=== PATIENT | male | born 1960 | race Caucasian/White ===

== ENCOUNTER → 2018-02-21 | Outpatient (CLI) | payer OTHER | END | disposition home or self-care (01) | LOC: CFH 10:06 | PROVIDERS: ATTEND Family Medicine | DX: K80.20 Calculus of gallbladder without cholecystitis without obstruction (principal); R94.5 Abnormal results of liver function studies | CPT/HCPCS: 76705 ==

== ENCOUNTER 2018-05-24 10:22 | Inpatient (IN) | payer OTHER ==
[~2018-05-24] VITALS: Ht 182.9 cm; Wt 88.8 kg
[2018-05-24 11:30] LABS: BASOPHILS % (AUTO) 0 % (0-1); EOSINOPHILS # (AUTO) 0.03 x10^3/uL (0-0.4); EOSINOPHILS % (AUTO) 0 % (1-7); LYMPHOCYTES % (AUTO) 15 % (22-44); MD NO; MEAN CORPUSCULAR HEMOGLOBIN 31.2 pg (27.5-34.5); MEAN CORPUSCULAR VOLUME 91.7 fL (81-97); MEAN PLATELET VOLUME 8.2 fL (7.4-10.4); MONOCYTES # (AUTO) 1.29 x10^3/uL (0.2-0.8); MONOCYTES % (AUTO) 12 % (2-9); NEUTROPHILS # (AUTO) 7.99 x10^3/uL (1.8-6.8); NEUTROPHILS % (AUTO) 73 % (42-75); PLATELET COUNT 286 x10^3/uL (130-400); RED BLOOD COUNT 4.43 x10^6/uL (4.38-5.82); RED CELL DISTRIBUTION WIDTH 14.1 % (9.4-14.8)
[2018-05-24 11:38] LABS: INTERNATIONAL NORMALIZED RATIO 1.01 (0.93-1.1); PROTHROMBIN TIME 10.7 Seconds (9.6-11.5)
[2018-05-24 11:40] LABS: ALBUMIN 3.5 g/dL (3.4-5.0); ANION GAP 7 mmol/L (5-15); CALCIUM 9.1 mg/dL (8.5-10.1); CHLORIDE 96 mmol/L (98-107); CREATININE 0.94 mg/dL (0.7-1.3)
--- NOTE | 2018-05-24 12:23 | NUR ---
PT CURRENTLY IN .
[2018-05-24] MEDS ORDERED: VANCOMYCIN 1,600 MG in SODIUM CHLORIDE 0.9% 250 ML IV ONE (13:30)
[2018-05-24] MEDS ORDERED: PIPERACILLIN/TAZO/PMX 3.375GM 50 ML IVPB ONE (13:30)
[2018-05-24] MEDS ORDERED: VANCOMYCIN PER PHARMACY MC ONE (13:30)
[2018-05-24] MEDS ORDERED: SODIUM CHLORIDE FLUSH 10ML SYR IVF ONE (13:30)
[2018-05-24 13:41] LABS: ALANINE AMINOTRANSFERASE 44 U/L (12-78); ALBUMIN 3.8 g/dL (3.4-5.0); ANION GAP 4 mmol/L (5-15); CALCIUM 9.1 mg/dL (8.5-10.1); CHLORIDE 96 mmol/L (98-107); CREATININE 0.92 mg/dL (0.7-1.3)
[2018-05-24 13:43] LABS: ALKALINE PHOSPHATASE 93 U/L (45-117); BILIRUBIN,TOTAL 2.5 mg/dL (0.2-1.0); TOTAL PROTEIN 8.5 g/dL (6.4-8.2)
[2018-05-24] MEDS ORDERED: PIPERACILLIN/TAZO/PMX 3.375GM 50 ML ONE (14:12)
--- NOTE | 2018-05-24 14:32 | NUR ---
S/P SPRAINED ANKLE 05/18. PRESENTS WITH INCREASED SWELLING. ERYTHEMA WHICH IS HOT TO TOUCH, DENIES CHILLS/N/V. SKIN/SLERA YELLOWED.
[2018-05-24] MEDS ORDERED: DIGO250T PO (14:46)
[2018-05-24] MEDS ORDERED: OLME40TA12 PO (14:46)
[2018-05-24] MEDS ORDERED: SILD25TA PO (14:46)
[2018-05-24] MEDS ORDERED: SIMV20TA3 PO (14:46)
[2018-05-24] MEDS ORDERED: WARF7.5T46 PO (14:46)
[2018-05-24] MEDS ORDERED: VALA500T PO (14:46)
[2018-05-24] MEDS ORDERED: METO50TA82 PO (14:46)
[2018-05-24] MEDS ORDERED: FOLI-17 PO (14:46)
[2018-05-24] MEDS ORDERED: SODIUM CHLORIDE FLUSH 10ML SYR IVF PRN (15:00)
[2018-05-24] MEDS ORDERED: VANCOMYCIN PER PHARMACY MC PRN (15:30)
[2018-05-24] MEDS ORDERED: ONDANSETRON 2MG/ML, 2ML IVPush PRN (15:30)
[2018-05-24] MEDS ORDERED: GABAPENTIN 300 MG CAPSULE PO PRN (15:30)
[2018-05-24] MEDS ORDERED: METHOCARBAMOL 500 MG TABLET PO PRN (15:30)
[2018-05-24] MEDS ORDERED: ONDANSETRON ODT 4 MG PO PRN (15:30)
[2018-05-24 16:19] LABS: CHLORIDE,URINE RANDOM 16 mmol/L; MICROSCOPIC NOT IND; POTASSIUM,URINE RANDOM 62 mmol/L; SODIUM,URINE RANDOM 12 mmol/L
[2018-05-24 16:22] LABS: CULTURE INDICATED? NO
[2018-05-24] MEDS ORDERED: SILDENAFIL CITRATE 25 MG PO PRN (17:00)
[2018-05-24] MEDS ORDERED: PHARMACOKINETIC MONITORING MC PRN (17:00)
[2018-05-24] MEDS: VALACYCLOVIR 500MG TABLET PO SCH ×2 (17:00→20:34)
[2018-05-24] MEDS ORDERED: PHARMACOKINETIC CONSULTATION MC ONE (17:00)
[2018-05-24 17:08] VITALS: BP 133/69
[2018-05-24] MEDS: SODIUM CHLORIDE 0.9% 1,000 ML IV SCH (17:24)
[2018-05-24] MEDS: AMPICILLIN/SULBACTAM 3 GM in SODIUM CHLORIDE 0.9% 100 ML IV SCH ×2 (17:25→23:07)
[2018-05-24] MEDS: ENOXAPARIN 40 MG/0.4 ML SQ SCH (17:27)
[2018-05-24 17:29] LABS: AMPHETAMINE SCREEN, URINE Negative (Negative); CANNABINOID SCREEN, URINE Negative (Negative); COCAINE SCREEN, URINE Negative (Negative); METHADONE SCREEN, URINE Negative (Negative); OPIATE SCREEN, URINE Negative (Negative)
[2018-05-24 17:38] LABS: BARBITURATE SCREEN, URINE Negative (Negative); BENZODIAZEPINE SCREEN, URINE Negative (Negative)
[2018-05-24] MEDS ORDERED: WARFARIN 10 MG TABLET PO-COUM ONE (18:00)
[2018-05-24 19:44] VITALS: BP 122/67
[2018-05-24] MEDS: SIMVASTATIN 20 MG TABLET PO SCH (20:34)
[2018-05-24] MEDS: OLMESARTAN MEDOXOMIL 40 MG PO SCH (20:34)
[2018-05-25 01:08] VITALS: BP 134/90
[2018-05-25] MEDS: SODIUM CHLORIDE 0.9% 1,000 ML IV SCH ×3 (03:04→21:23)
[2018-05-25] MEDS: AMPICILLIN/SULBACTAM 3 GM in SODIUM CHLORIDE 0.9% 100 ML IV SCH ×4 (05:14→23:04)
[2018-05-25 05:41] LABS: INTERNATIONAL NORMALIZED RATIO 1.01 (0.93-1.1); PROTHROMBIN TIME 10.7 Seconds (9.6-11.5)
[2018-05-25 05:48] LABS: BASOPHILS # (AUTO) 0.03 x10^3/uL (0-0.1); BASOPHILS % (AUTO) 0 % (0-1); EOSINOPHILS # (AUTO) 0.06 x10^3/uL (0-0.4); EOSINOPHILS % (AUTO) 1 % (1-7); LYMPHOCYTES # (AUTO) 1.35 x10^3/uL (1-3.4); LYMPHOCYTES % (AUTO) 19 % (22-44); MD NO; MEAN CORPUSCULAR HEMOGLOBIN 31.5 pg (27.5-34.5); MEAN CORPUSCULAR HGB CONC 34.4 g/dL (33.2-36.2); MEAN CORPUSCULAR VOLUME 91.5 fL (81-97); MEAN PLATELET VOLUME 8.1 fL (7.4-10.4); MONOCYTES # (AUTO) 0.97 x10^3/uL (0.2-0.8); MONOCYTES % (AUTO) 14 % (2-9); NEUTROPHILS # (AUTO) 4.72 x10^3/uL (1.8-6.8); NEUTROPHILS % (AUTO) 66 % (42-75); PLATELET COUNT 221 x10^3/uL (130-400); RED BLOOD COUNT 3.71 x10^6/uL (4.38-5.82); RED CELL DISTRIBUTION WIDTH 14.1 % (9.4-14.8)
[2018-05-25 05:53] LABS: ALBUMIN 2.9 g/dL (3.4-5.0); ANION GAP 7 mmol/L (5-15); CHLORIDE 98 mmol/L (98-107)
[2018-05-25 05:56] LABS: ALANINE AMINOTRANSFERASE 35 U/L (12-78); ALKALINE PHOSPHATASE 74 U/L (45-117); BILIRUBIN,TOTAL 1.8 mg/dL (0.2-1.0); CREATININE 0.73 mg/dL (0.7-1.3); TOTAL PROTEIN 6.3 g/dL (6.4-8.2)
[2018-05-25 08:00] VITALS: BP 151/82
[2018-05-25] MEDS: VALACYCLOVIR 500MG TABLET PO SCH ×3 (08:01→21:23)
[2018-05-25] MEDS: FOLIC ACID 1 MG TABLET PO SCH (08:15)
[2018-05-25] MEDS: VANCOMYCIN 1,800 MG in SODIUM CHLORIDE 0.9% 250 ML IV SCH (08:15)
[2018-05-25] MEDS: DIGOXIN 0.25 MG TABLET PO SCH (08:15)
[2018-05-25] MEDS: METOPROLOL TARTRATE 50 MG TABLET PO SCH (08:16)
[2018-05-25 14:00] VITALS: BP 117/67
[2018-05-25] MEDS ORDERED: WARFARIN 10 MG TABLET PO-COUM ONE (18:00)
[2018-05-25] MEDS: ENOXAPARIN 40 MG/0.4 ML SQ SCH (18:01)
[2018-05-25 18:53] VITALS: BP 133/71
[2018-05-25] MEDS: OLMESARTAN MEDOXOMIL 40 MG PO SCH (21:23)
[2018-05-25] MEDS: SIMVASTATIN 20 MG TABLET PO SCH (21:23)
[2018-05-26 01:33] VITALS: BP 142/73
[2018-05-26] MEDS: VANCOMYCIN 1,800 MG in SODIUM CHLORIDE 0.9% 250 ML IV SCH ×2 (01:45→20:24)
[2018-05-26 05:16] LABS: BASOPHILS # (AUTO) 0.03 x10^3/uL (0-0.1); BASOPHILS % (AUTO) 1 % (0-1); EOSINOPHILS # (AUTO) 0.05 x10^3/uL (0-0.4); EOSINOPHILS % (AUTO) 1 % (1-7); LYMPHOCYTES # (AUTO) 1.14 x10^3/uL (1-3.4); LYMPHOCYTES % (AUTO) 18 % (22-44); MD NO; MEAN CORPUSCULAR HEMOGLOBIN 30.6 pg (27.5-34.5); MEAN CORPUSCULAR HGB CONC 33.7 g/dL (33.2-36.2); MEAN CORPUSCULAR VOLUME 90.8 fL (81-97); MEAN PLATELET VOLUME 7.8 fL (7.4-10.4); MONOCYTES # (AUTO) 0.79 x10^3/uL (0.2-0.8); MONOCYTES % (AUTO) 12 % (2-9); NEUTROPHILS # (AUTO) 4.37 x10^3/uL (1.8-6.8); NEUTROPHILS % (AUTO) 68 % (42-75); PLATELET COUNT 241 x10^3/uL (130-400); RED BLOOD COUNT 3.71 x10^6/uL (4.38-5.82); RED CELL DISTRIBUTION WIDTH 13.9 % (9.4-14.8)
[2018-05-26] MEDS: AMPICILLIN/SULBACTAM 3 GM in SODIUM CHLORIDE 0.9% 100 ML IV SCH ×3 (05:21→18:32)
[2018-05-26 05:30] LABS: ALBUMIN 2.9 g/dL (3.4-5.0); ANION GAP 8 mmol/L (5-15); CALCIUM 8.2 mg/dL (8.5-10.1); CHLORIDE 100 mmol/L (98-107)
[2018-05-26 05:31] LABS: INTERNATIONAL NORMALIZED RATIO 1.12 (0.93-1.1); PROTHROMBIN TIME 11.8 Seconds (9.6-11.5)
[2018-05-26 05:41] LABS: ALANINE AMINOTRANSFERASE 38 U/L (12-78); ALKALINE PHOSPHATASE 82 U/L (45-117); BILIRUBIN,TOTAL 1.5 mg/dL (0.2-1.0); CREATININE 0.72 mg/dL (0.7-1.3); TOTAL PROTEIN 6.3 g/dL (6.4-8.2)
[2018-05-26 08:18] VITALS: BP 154/87
[2018-05-26] MEDS: VALACYCLOVIR 500MG TABLET PO SCH ×3 (09:00→20:25)
[2018-05-26 09:13] LABS: INTERNATIONAL NORMALIZED RATIO 1.15 (0.93-1.1); PROTHROMBIN TIME 12.1 Seconds (9.6-11.5)
[2018-05-26] MEDS: SODIUM CHLORIDE 0.9% 1,000 ML IV SCH ×2 (09:52→18:33)
[2018-05-26] MEDS: METOPROLOL TARTRATE 50 MG TABLET PO SCH (09:52)
[2018-05-26] MEDS: DIGOXIN 0.25 MG TABLET PO SCH (09:54)
[2018-05-26] MEDS: FOLIC ACID 1 MG TABLET PO SCH (09:58)
[2018-05-26 13:27] VITALS: BP 115/67
[2018-05-26] MEDS ORDERED: WARFARIN 10 MG TABLET PO-COUM SCH (18:00)
[2018-05-26] MEDS: ENOXAPARIN 40 MG/0.4 ML SQ SCH (18:33)
[2018-05-26] MEDS: SIMVASTATIN 20 MG TABLET PO SCH (20:24)
[2018-05-26] MEDS: OLMESARTAN MEDOXOMIL 40 MG PO SCH (20:24)
[2018-05-27] MEDS: AMPICILLIN/SULBACTAM 3 GM in SODIUM CHLORIDE 0.9% 100 ML IV SCH ×4 (00:14→18:23)
[2018-05-27 01:51] VITALS: BP 129/76
[2018-05-27 06:30] LABS: INTERNATIONAL NORMALIZED RATIO 1.3 (0.93-1.1); PROTHROMBIN TIME 13.6 Seconds (9.6-11.5)
[2018-05-27 08:09] VITALS: BP 147/89
[2018-05-27 09:31] LABS: INTERNATIONAL NORMALIZED RATIO 1.27 (0.93-1.1); PROTHROMBIN TIME 13.3 Seconds (9.6-11.5)
[2018-05-27] MEDS: SODIUM CHLORIDE 0.9% 1,000 ML IV SCH ×2 (10:33→17:21)
[2018-05-27] MEDS: METOPROLOL TARTRATE 50 MG TABLET PO SCH (10:33)
[2018-05-27] MEDS: VANCOMYCIN 1,800 MG in SODIUM CHLORIDE 0.9% 250 ML IV SCH ×2 (10:33→22:59)
[2018-05-27] MEDS: FOLIC ACID 1 MG TABLET PO SCH (10:33)
[2018-05-27] MEDS: DIGOXIN 0.25 MG TABLET PO SCH (10:34)
[2018-05-27] MEDS: VALACYCLOVIR 500MG TABLET PO SCH ×3 (10:34→21:00)
[2018-05-27 13:39] VITALS: BP 128/75
[2018-05-27] MEDS: ENOXAPARIN 40 MG/0.4 ML SQ SCH (17:21)
[2018-05-27] MEDS ORDERED: WARFARIN 7.5 MG TABLET PO-COUM SCH (18:00)
[2018-05-27 19:07] VITALS: BP 157/90
[2018-05-27] MEDS: OLMESARTAN MEDOXOMIL 40 MG PO SCH (21:00)
[2018-05-27] MEDS: SIMVASTATIN 20 MG TABLET PO SCH (22:05)
[2018-05-28] MEDS: AMPICILLIN/SULBACTAM 3 GM in SODIUM CHLORIDE 0.9% 100 ML IV SCH ×2 (00:38→06:01)
[2018-05-28 01:50] VITALS: BP 131/84
[2018-05-28] MEDS: SODIUM CHLORIDE 0.9% 1,000 ML IV SCH ×2 (03:42→16:51)
[2018-05-28 05:54] LABS: INTERNATIONAL NORMALIZED RATIO 1.66 (0.93-1.1); PROTHROMBIN TIME 17.3 Seconds (9.6-11.5)
[2018-05-28 06:57] VITALS: BP 151/91
[2018-05-28] MEDS: VALACYCLOVIR 500MG TABLET PO SCH ×3 (09:00→20:05)
[2018-05-28 09:43] LABS: INTERNATIONAL NORMALIZED RATIO 1.77 (0.93-1.1); PROTHROMBIN TIME 18.4 Seconds (9.6-11.5)
[2018-05-28] MEDS: METOPROLOL TARTRATE 50 MG TABLET PO SCH (10:01)
[2018-05-28] MEDS: DIGOXIN 0.25 MG TABLET PO SCH (10:01)
[2018-05-28] MEDS: VANCOMYCIN 1,800 MG in SODIUM CHLORIDE 0.9% 250 ML IV SCH (10:01)
[2018-05-28] MEDS: FOLIC ACID 1 MG TABLET PO SCH (10:01)
[2018-05-28] MEDS ORDERED: CEFAZOLIN 2,000 MG in SODIUM CHLORIDE 0.9% 50 ML IV SCH (10:30)
[2018-05-28 11:48] LABS: HCT (SEDRATE) 36.1 % (39.2-51.8)
[2018-05-28 12:15] VITALS: BP 145/88
[2018-05-28 14:16] VITALS: BP 155/84
[2018-05-28] MEDS: ENOXAPARIN 40 MG/0.4 ML SQ SCH (16:53)
[2018-05-28] MEDS ORDERED: WARFARIN 10 MG TABLET PO-COUM SCH (18:00)
[2018-05-28] MEDS: CEFAZOLIN PMX 2GM/50ML 50 ML IVPB SCH (18:05)
[2018-05-28 19:25] VITALS: BP 152/85
[2018-05-28] MEDS: SIMVASTATIN 20 MG TABLET PO SCH (19:58)
[2018-05-28] MEDS: OLMESARTAN MEDOXOMIL 40 MG PO SCH (20:04)
[2018-05-29 00:35] VITALS: BP 156/88
[2018-05-29] MEDS: SODIUM CHLORIDE 0.9% 1,000 ML IV SCH ×2 (00:56→08:47)
[2018-05-29] MEDS: CEFAZOLIN PMX 2GM/50ML 50 ML IVPB SCH ×2 (02:17→08:47)
[2018-05-29 05:15] LABS: INTERNATIONAL NORMALIZED RATIO 1.93 (0.93-1.1); PROTHROMBIN TIME 19.8 Seconds (9.6-11.5)
[2018-05-29 07:08] VITALS: BP 159/80
[2018-05-29] MEDS: DIGOXIN 0.25 MG TABLET PO SCH (08:47)
[2018-05-29] MEDS: VALACYCLOVIR 500MG TABLET PO SCH (08:48)
[2018-05-29] MEDS: METOPROLOL TARTRATE 50 MG TABLET PO SCH (08:48)
[2018-05-29] MEDS: FOLIC ACID 1 MG TABLET PO SCH (08:48)
[2018-05-29] MEDS ORDERED: TRAM50TA2 PO (10:05)
[2018-05-29] MEDS ORDERED: GABA300C10 PO ×3 (10:05→12:47)
[2018-05-29] MEDS ORDERED: CEPH-368 PO ×3 (10:07→12:47)
[2018-05-29] MEDS ORDERED: WARFARIN 10 MG TABLET PO-COUM SCH (18:00)
== END 2018-05-29 13:33 | disposition home or self-care (01) | DRG 603 ==
LOC: ED 13:27 → EDIP 14:58 → 3NE 16:34
PROVIDERS: ADMIT Internal Medicine; ATTEND Internal Medicine
DX: L03.115 Cellulitis of right lower limb (principal); D68.69 Other thrombophilia; E87.1 Hypo-osmolality and hyponatremia; S82.831A Other fracture of upper and lower end of right fibula, initial encounter for closed fracture; W00.0XXA Fall on same level due to ice and snow, initial encounter; Y93.89 Activity, other specified; Y92.89 Other specified places as the place of occurrence of the external cause; Y99.8 Other external cause status; X50.1XXA Overexertion from prolonged static or awkward postures, initial encounter; I48.2 Chronic atrial fibrillation; I10 Essential (primary) hypertension; E78.5 Hyperlipidemia, unspecified; Z79.01 Long term (current) use of anticoagulants; Z87.891 Personal history of nicotine dependence
CPT/HCPCS: 36415; 80048; 80053; 80202; 80307; 81003; 82040; 82436; 83605; 84133; 84145; 84300; 84443; 85025; 85610; 85651; 86140; 87040; 87070; 87081; 87205; 96365; 96366; 96367; G0378; J0295; J0690; J1650; J2543; J3370; J7030; J7050

== ENCOUNTER 2018-06-23 05:32 | Day surgery (SDC) | payer OTHER ==
[2018-06-21 09:34] LABS: ALANINE AMINOTRANSFERASE 40 U/L (12-78); ANION GAP 4 mmol/L (5-15); CHLORIDE 102 mmol/L (98-107); CREATININE 0.82 mg/dL (0.7-1.3)
[2018-06-21 09:36] LABS: ALKALINE PHOSPHATASE 83 U/L (45-117); BILIRUBIN,TOTAL 1.3 mg/dL (0.2-1.0); TOTAL PROTEIN 7.7 g/dL (6.4-8.2)
[~2018-06-23] VITALS: Ht 182.9 cm; Wt 79.4 kg
[~2018-06-23 05:32] MED LIST: CEPH-368 PO; CHOL2000 PO; DIGO250T PO; ENOX100S5 SQ; FOLI-17 PO; GABA300C10 PO; LACT1CAP35 PO; METO-93 PO; METO50TA82 PO; MULT1TAB60 PO; OLME40TA12 PO; SILD25TA PO; SIMV20TA3 PO; TRAM50TA2 PO; VALA500T PO; WARF7.5T46 PO
[2018-06-23 06:39] VITALS: BP 123/82
[2018-06-23] MEDS ORDERED: BUPIVACAINE/PF-EPI 0.5% 1:200K ONE ×2 (06:51)
[2018-06-23] MEDS ORDERED: MIDAZOLAM 1 MG/ML, 2ML ONE (06:54)
[2018-06-23] MEDS ORDERED: FENTANYL PF 100 MCG/2ML ONE (06:54)
[2018-06-23] MEDS ORDERED: LACTATED RINGERS 1,000 ML IV SCH (07:00)
[2018-06-23 07:37] LABS: INTERNATIONAL NORMALIZED RATIO 1.14 (0.93-1.1); PROTHROMBIN TIME 11.9 Seconds (9.6-11.5)
[2018-06-23] MEDS ORDERED: PROPOFOL 10 MG/ML, 20ML ONE (07:44)
[2018-06-23] MEDS ORDERED: DEXAMETHASONE 4 MG/ML, 1ML ONE (07:44)
[2018-06-23] MEDS ORDERED: CEFAZOLIN 1,000 MG ONE (07:44)
[2018-06-23] MEDS ORDERED: ONDANSETRON 2MG/ML, 2ML ONE (07:44)
[2018-06-23] MEDS ORDERED: ONDANSETRON 2MG/ML, 2ML IVPush PRN (09:00)
[2018-06-23] MEDS ORDERED: morphine SULFATE 10 MG/ML, 1ML IVPush PRN (09:00)
[2018-06-23] MEDS ORDERED: OXYcodone 5 MG/5 ML ORAL.SOL UDC PO PRN ×2 (09:00→10:00)
[2018-06-23] MEDS ORDERED: ACETAMINOPHEN 325 MG TABLET PO PRN ×2 (09:00→10:00)
[2018-06-23] MEDS ORDERED: PROMETHAZINE 25 MG/ML, 1ML IM PRN (09:00)
[2018-06-23] MEDS ORDERED: LABETALOL 5MG/ML, 20ML IV PRN (10:00)
[2018-06-23] MEDS ORDERED: FENTANYL PF 100 MCG/2ML IV PRN (10:00)
[2018-06-23] MEDS ORDERED: PROMETHAZINE 25 MG/ML, 1ML IV PRN (10:00)
[2018-06-23] MEDS ORDERED: DIAZEPAM 5 MG/ML, 2ML IVPush PRN (10:00)
[2018-06-23] MEDS ORDERED: ALBUTEROL SULFATE 2.5 MG/3 ML NPPB PRN (10:00)
[2018-06-23] MEDS ORDERED: MEPERIDINE/PF 25MG/0.5ML IVPush PRN (10:00)
[2018-06-23] MEDS ORDERED: KETOROLAC 30 MG/1 ML IV PRN (10:00)
[2018-06-23] MEDS ORDERED: hydrALAzine 20 MG/ML, 1ML IV PRN (10:00)
[2018-06-23] MEDS ORDERED: HYDROmorphone 2 MG/ML, 1ML IVPush PRN (10:00)
== END 2018-06-23 10:35 | disposition home or self-care (01) ==
LOC: OUT 05:32
PROVIDERS: ATTEND Orthopaedic Surgery
DX: S93.491A Sprain of other ligament of right ankle, initial encounter (principal); I48.91 Unspecified atrial fibrillation; X58.XXXA Exposure to other specified factors, initial encounter; Y93.89 Activity, other specified; Y92.89 Other specified places as the place of occurrence of the external cause; Y99.8 Other external cause status; Z72.89 Other problems related to lifestyle; Z88.1 Allergy status to other antibiotic agents; Z87.891 Personal history of nicotine dependence
CPT/HCPCS: 27829; 36415; 64445; 64447; 73600; 76000; 80053; 85610; 85730; 93005; C1713; J0690; J1100; J2250; J2405; J2704; J3010; J7120